=== PATIENT | male | born 1985 | race Caucasian/White ===

== ENCOUNTER 2024-09-02 10:36 | Emergency (ER) | payer OTHER, SELFPAY ==
[2024-09-02 10:39] VITALS: BP 130/75; PULSE 85; RESP 18; TEMP 36.4; O2SAT 99; BMI 22.0
[2024-09-02 11:17] LABS: Basophils Absolute Auto 0.1 X10*3/uL (0.0-0.2); Basophils Percent Auto 0.4 % (0-2); Eosinophils Absolute Auto 0.1 X10*3/uL (0.0-0.4); Eosinophils Percent Auto 0.3 % (0-4); Hematocrit 39.6 % (42.0-52.0); Hemoglobin 13.4 g/dl (14.0-18.0); Imm Gran Abs Auto 0.11 X10*3/uL (0.00-0.03); Imm Gran Pct Auto 0.7 % (0.0-0.4); Lymphocytes Absolute Auto 1.1 X10*3/uL (1.2-4.9); Lymphocytes Percent Auto 6.8 % (20-40); MANUAL DIFF FLAG SCAN; Mean Corpuscular HGB Conc 33.8 g/dl (31.0-36.0); Mean Corpuscular Hemoglobin 27.6 pg (27.0-33.0); Mean Corpuscular Volume 81.5 fL (80.0-98.0); Monocytes Percent Auto 12.2 % (2-11); Neutrophils Absolute Auto 13.3 x10*3/uL (2.0-8.3); Neutrophils Percent Auto 79.6 % (45-73); PLT CLUMP 1; Red Blood Count 4.86 X10*6/uL (4.60-5.80); Red Cell Distribution Width 14.2 % (11.0-16.0); SCAN SMEAR FLAG 1
--- NOTE | 2024-09-02 11:22 | ED_ITS ---
HPI - General Adult General Chief complaint: General Medical Stated complaint: Cellulitis R arm? Time Seen by Provider: 09/02/24 11:13 History of Present Illness HPI narrative: Patient is a 38-year-old male with a history IV drug use. Complaining pain and swelling to the right forearm area. Patient is right-hand dominant. He complains that the cat scratched him 3-4 days ago. He also has a history of IV drug use. He claims he last used about a week ago. There is no fever no chills no systemic complaints. Patient is from home. Related Data Previous Rx's ?Medication ?Instructions ?Recorded doxycycline hyclate 100 mg capsule 100 mg PO BID cough 7 days #14 caps 09/02/24 Allergies Allergy/AdvReac Type Severity Reaction Status Date / Time No Known Allergies Allergy Verified 09/02/24 10:42 Review of Systems 2 Review of Systems: Positive swelling to the right forearm Yes all other systems are reviewed and are negative PMFSH Past Medical History Attestation statement: The following information was validated with the patient. Social History Social History Smoked in Last 30 Days: Yes Use of substances other than those prescribed or required for medical reasons: No Advance Directives: No Advance Directives Information Provided: Yes Physical Exam ED Vital Signs: Vital Signs - 24 hr 09/02/24 10:39 09/02/24 12:03 Temperature 97.5 F 98.5 F Pulse Rate 85 65 Respiratory Rate 18 12 Blood Pressure 130/75 111/68 Pulse Oximetry 99 97 Oxygen Delivery Method Room Air Room Air BMI result Body Mass Index 22.0 Appearance: Alert. Oriented X3. No acute distress. Eyes: Pupils equal, round and reactive to light. ENT: Pharynx normal. Neck: Normal inspection. Neck supple. No lymph nodes noted. No crepitus CVS: Normal heart rate and rhythm. Pulses normal. Normal S1 and S2 Respiratory: No respiratory distress. Breath sounds normal. No Wheezing. No rales Abdomen: Soft and nontender. No rigidity. No distention. good BS x4 Skin: Large fluctuant warm lesion over the right forearm area approximately 8 cm x 6 cm in size fluctuant red warm to touch. Distally sensation over the hand grossly intact over median radial ulnar nerve distribution there is no anatomical snuffbox tenderness there is good range of motion at the wrist she has good hand movement there is good opposition of the thumb there is good capillary refill. Extremities: No lower extremity edema. Neurovascular intact to all extremities. No Lacerations. No Rash Neuro: Oriented X 3. No motor deficit. No sensory deficit. Moving all extermities. No slurred speech Medications Administered Discontinued Medications Generic Name Dose Route Start Last Admin Trade Name Taeq PRN Reason Stop Dose Admin Doxycycline Monohydrate 100 mg 09/02/24 11:21 09/02/24 11:51 Doxycycline Monohydrate 100 Mg Capsule PO 09/02/24 11:22 100 mg ONCE ONE Administration Lidocaine HCl 10 ml 09/02/24 11:22 09/02/24 11:53 Lidocaine Hcl 1 % Mpf 5 Ml Vial SUBCUT 09/02/24 11:23 10 ml ONCE ONE Administration Procedures Abscess I/D Site: upper extremity (right forearm) Side (if applicable): right Local Anesthetic: lidocaine 1% Amount of anesthesia used (mL): 5 Technique: needle aspiration and incised with blade Amount of fluid expressed (mL): 15 Sent for culture/gram staining?: Yes Irrigation: Yes Packing used?: iodoform Medical Decision Making Medical Decision Making [facility] Narrative: Large abscess over the right forearm will require I&D. Risks and benefits discussed with patient. Agreed to plan. Because it is a significant area of cellulitis surrounding the wound. Will also give antibiotics. Significant history of IV drug use. Will give doxycycline to cover community-acquired MRSA. Patient agreed to I and D. I and D was performed. Large amount of pus expressed. Patient's wound was packed. Will discharge patient home. A 1st dose of antibiotic was given. Differential Diagnosis Differential Diagnoses: The differential diagnosis associated with the presentation includes Cellulitis versus abscess Admission/Observation Consideration of admission/observation: Escalation of care including admission/observation considered Considered addition but given did not admits SIRS criteria fair appearing wound was I indeed antibiotics to be started. Lab Data [facility] Lab Attestation statement: I reviewed the patient's lab results. 09/02/24 10:59 09/02/24 10:59 Labs: Lab Results 09/02/24 Range/Units 10:59 WBC 16.7 H (4.8-10.8) X10*3/uL RBC 4.86 (4.60-5.80) X10*6/uL Hgb 13.4 L (14.0-18.0) g/dl Hct 39.6 L (42.0-52.0) % MCV 81.5 (80.0-98.0) fL MCH 27.6 (27.0-33.0) pg MCHC 33.8 (31.0-36.0) g/dl RDW 14.2 (11.0-16.0) % Plt Count 267 (160-400) X10*3/uL MPV 9.0 L (9.4-12.4) fL Immature Gran % (Auto) 0.7 H (0.0-0.4) % Neut % (Auto) 79.6 H (45-73) % Lymph % (Auto) 6.8 L (20-40) % [place] % (Auto) 12.2 H (2-11) % Eos % (Auto) 0.3 (0-4) % Baso % (Auto) 0.4 (0-2) % Lymph # (Auto) 1.1 L (1.2-4.9) X10*3/uL [place] # (Auto) 2.0 H (0.1-1.2) X10*3/uL Eos # (Auto) 0.1 (0.0-0.4) X10*3/uL Baso # (Auto) 0.1 (0.0-0.2) X10*3/uL Abs Immat Gran (auto) 0.11 H (0.00-0.03) X10*3/uL Absolute Neuts (auto) 13.3 H (2.0-8.3) x10*3/uL Absolute Nucleated RBC 0.000 (0.0-0.012) X10*3/uL Nucleated RBC % (auto) 0.0 (0.0-0.2) /100WBC Smear Tech's Comments VERIFIED Sodium 138 (135-145) mmol/L Potassium 4.4 (3.3-5.1) mmol/L Chloride 106 (96-108) mmol/L Carbon Dioxide 23 (22-29) mmol/L Anion Gap 13 (12-20) BUN 10 (9-16) mg/dL Creatinine 0.79 (0.5-1.4) mg/dL Estim Creat Clear Calc 122.1 Estimated GFR > 60 Random Glucose 100 (60-115) mg/dL Lactic Acid 1.7 (0.5-2.0) mmol/L Calcium 9.3 (8.4-10.2) mg/dL Total Bilirubin 0.9 (0.0-1.0) mg/dL AST 19 (5-37) U/L ALT 11 (0-40) U/L Alkaline Phosphatase 79 (39-117) U/L Total Protein 8.2 H (6.5-8.0) g/dL Albumin 4.0 (3.5-5.0) g/dL Discharge Plan Discharge Clinical Impression: Abscess Patient Disposition: Home, Self-Care Instructions: Abscess (ED), Abscess Incision and Drainage (DC) Prescriptions: New doxycycline hyclate 100 mg capsule 100 mg PO BID 7 Days Qty: 14 0RF Referrals: Aleksandra Alejandro MD [Emergency Provider] - 09/05/24 (Follow-up in the emergency department in 2-3 days.) Print Language: Welsh
[2024-09-02 11:24] LABS: Alanine Aminotransferase 11 U/L (0-40); Alkaline Phosphatase 79 U/L (39-117); Anion Gap 13 (12-20); Aspartate Amino Transferase 19 U/L (5-37); Bilirubin Total 0.9 mg/dL (0.0-1.0); Blood Urea Nitrogen 10 mg/dL (9-16); Calcium 9.3 mg/dL (8.4-10.2); Carbon Dioxide 23 mmol/L (22-29); Chloride 106 mmol/L (96-108); Creatinine Clr Calc Pharmacy 122.1; Estimated Glomerular Filt Rate > 60; Glucose Random 100 mg/dL (60-115); Lactic Acid 1.7 mmol/L (0.5-2.0); Potassium 4.4 mmol/L (3.3-5.1); Sodium 138 mmol/L (135-145); Total Protein 8.2 g/dL (6.5-8.0)
[2024-09-02 11:41] LABS: Platelet Count 267 X10*3/uL (160-400); SLIDE REVIEW VERIFIED; White Blood Count 16.7 X10*3/uL (4.8-10.8)
[2024-09-02] MEDS: Doxycycline Monohydrate 100 MG CAPSULE PO (11:51)
[2024-09-02] MEDS: Lidocaine HCl 1 % MPF 5 ML VIAL 10 ML SUBCUT (11:53)
[2024-09-02 12:03] VITALS: BP 111/68; PULSE 65; RESP 12; TEMP 36.9; O2SAT 97
[2024-09-02 13:27] VITALS: BP 111/68; PULSE 65; RESP 12; TEMP 36.9; O2SAT 97
--- OUTSIDE RECORDS SUMMARY | 2024-09-02 13:41 | XMS_ITS | Clinical Summary ---
Author Organization [facility] Address [address] [place] [address] Care Team Providers Care Trade Specialist Name Role Phone Unavailable Primary Care Provider Unavailabl e Social History Tobacco Use Types Packs/Day Years Used Date Smoking Tobacco: Never Assessed Sex and Gender Information Value Date Recorded Sex Assigned at Not on file Legal Sex Male 2:43 PM EST Gender Identity Not on file Sexual Orientation Not on file Plan of Treatment Health Maintenance Due Date Last Done Comments DTaP,Tdap,and Td Vaccines (1 - Tdap) 10/26/2002 Hepatitis B Vaccines (1 of 3 - 19+ 3-dose series) 10/26/2002 COVID-19 Vaccine (2023-2 5 season) 2024 Influenza Vaccine (#1) 2024 HIB Vaccines Aged Out No longer eligi ble based on patient's age to complete this topic HPV Vaccines Aged Out No longer eligi ble based on patient's age to complete this topic Hepatitis A Vaccines Aged Out No long er eligible based on patient's age to complete this topic IPV Vaccines Aged Out No longer eligi ble based on patient's age to complete this topic MMR Vaccines Aged Out No longer eligi ble based on patient's age to complete this topic Meningococcal ACWY Vaccine Aged Out N o longer eligible based on patient's age to complete this topic Meningococcal B Vacine Aged Out No lo nger eligible based on patient's age to complete this topic Pneumococcal Vaccine: Pediat rics (0 to 5 Years) and At-Risk Patients (6 to 64 Years) Aged Out No longer eligible b ased on patient's age to complete this topic RSV Immunization Patients Un enoc 20 months Aged Out No longer eligible b ased on patient's age to complete this topic Varicella Vaccines Aged Out No longer eligible based on patient's age to complete this topic
== END 2024-09-02 13:32 | disposition home or self-care (01) ==
PROVIDERS: Emergency Provider Emergency Medicine Emergency Medical Services
DX: L02.413 Cutaneous abscess of right upper limb (principal); M79.631 Pain in right forearm
CPT/HCPCS: 10060; 36415; 80053; 83605; 85025; 87040; 87070; 87077; 87186; 87205; 99284; J2003

== ENCOUNTER 2024-09-04 12:32 | Emergency (ER) | payer OTHER, SELFPAY ==
[2024-09-04 13:25] VITALS: BP 103/64; PULSE 64; RESP 16; TEMP 36.6; O2SAT 98; BMI 22.3
--- NOTE | 2024-09-04 13:26 | ED_ITS ---
HPI - Wound/Laceration General Chief Complaint: Wound/Laceration Stated Complaint: wound check Time Seen by Provider: 09/04/24 15:57 Source: patient Mode of arrival: ambulatory Limitations: no limitations History of Present Illness ED Provider: Luis Angel Maloney HPI narrative: 38-year-old male history of IV drug abuse presents to the ED for wound re- evaluation. Patient is status post incision and drainage of right forearm. Patient states being compliant with antibiotics. Patient denies any fever or chills. Patient denies any nausea or vomiting. Patient denies any recent IV drug use. Related Data Previous Rx's ?Medication ?Instructions ?Recorded doxycycline hyclate 100 mg capsule 100 mg PO BID cough 7 days #14 caps 09/02/24 Allergies Allergy/AdvReac Type Severity Reaction Status Date / Time No Known Allergies Allergy Verified 09/04/24 13:26 Review of Systems 2 Review of Systems: Right forearm wound recheck Yes all other systems are reviewed and are negative PMFSH Social History Social History Advance Directives: No Advance Directives Information Provided: Yes Physical Exam 2 Vital Signs: Vital Signs: Last Vital Signs Temp 98 F 09/04/24 17:32 Pulse 67 09/04/24 17:32 Resp 18 09/04/24 17:32 BP 108/68 09/04/24 17:32 Pulse Ox 98 09/04/24 17:32 O2 Del Method Room Air 09/04/24 17:32 BMI result Body Mass Index 22.3 Const: General: cooperative, healthy appearing, comfortable, no acute distress, well developed, alert, awake and Physically active O rientation/consciousness: patient oriented x3 HEENT: Head: Yes normal to inspection, Yes No palpable skull fracture present, Yes normocephalic and Yes atraumatic Eyes: General: appearance normal, both eyes and all related structures Neck: Neck: Yes normal visual inspection, Yes full ROM, Yes no lymphadenopathy, Yes no meningeal signs, Yes trachea midline, Yes supple, No anterior neck swelling and No tender Chest: Chest palpation & inspection: normal inspection of the chest and normal palpation of entire chest wall Resp: Effort & Inspection: normal respiratory effort and able to speak in complete sentences Auscultation: clear to auscultation bilaterally Cardio: Jugular venous distension: no JVD Heart sounds: S1 normal heart sound present and S2 normal heart sound present GI: Inspection: Yes normal to inspection Palpation (GI): Soft to palpation, not firm, nontender, no guarding and not rigid : General: Yes no CVA tenderness Back/Spine/Pelvis: Back: no CVA tenderness and No back tenderness Skin: General skin exam: no rashes or lesions noted, elasticity normal and turgor normal Neuro: General: patient oriented x3, gait normal, tone normal, moves all extremities, Normal light touch and pain sensation, no meningeal signs, no focal motor deficits, CN's II-XI intact bilaterally and normal sensation to monofilament Extrem: General: Yes normal to inspection, Yes full ROM and Yes capillary refill normal Elbow/forearm/wrist images: 1. Wound is healing. Packing removed slight drainage. Patient states redness is improving. Vascular motor neuro exam and Psych: Appearance: grossly normal, well kempt and not disheveled Course Course Course Narrative: This is an RME: Additional HPI, ROS, PE not included below will be deferred to primary provider. RME assessment and note performed by: Rani Temple PA-C This is a 38-year-old male who presents emergency department for evaluation of wound check. Had a large abscess excised on his right forearm needs packing removed. Reports that it is getting better slightly. Also reporting right upper tooth pain. Plan: will unpack Medications Administered Discontinued Medications Generic Name Dose Route Start Last Admin Trade Name Freq PRN Reason Stop Dose Admin Ibuprofen 600 mg 09/04/24 13:28 09/04/24 13:31 Ibuprofen 600 Mg Tablet PO 09/04/24 13:29 600 mg ONCE ONE Administration Medical Decision Making Medical Decision Making [facility] Narrative: 38-year-old male presents to ED for wound check. Abscesses healing. Packing removed. Plan was to place a new packing but patient refused packing. Area cleaned and new dressing placed. Patient informed to follow up with primary care provider and Wound Clinic. Patient informed to return to the ED immediately for any concerning symptoms. Not suspecting sepsis, endocarditis, septic emboli, necrotizing fasciitis, lymphangitis, compartment syndrome, osteomyelitis, or any other life threatening etiology. Differential Diagnosis Differential Diagnoses: The differential diagnosis associated with the presentation includes (Wound re-evaluation) Admission/Observation Consideration of admission/observation: Escalation of care including admission/observation considered Independent Historian Clinical information obtained from an independent historian. History obtained from or confirmed by: Other (Patient) Prescription Management I considered prescription management with: Other (Antibiotic) Discharge Plan Discharge Clinical Impression: Encounter for wound re-check Patient Disposition: Home, Self-Care Instructions: Abscess Follow-up (ED) Additional Instructions: Recommend follow-up with primary care provider and Wound Clinic. Return to the ED immediately for worsening redness, swelling, worsening discharge, bluish discoloration, fever, chills, or any other concerning symptoms. Continue taking antibiotics as prescribed. Prescriptions: No Action doxycycline hyclate 100 mg capsule 100 mg PO BID 7 Days Qty: 14 0RF Referrals: [facility] Wound Care Management [Provider Group] (Drained abscess. Cellulitis being treated. History of IV drug use) Interventions: ED Discharge Assessment Last Done: 09/04/24 17:32 Discharge Date/Time: 09/04/24 17:33 Print Language: Mauritian
[2024-09-04] MEDS: Ibuprofen 600 MG TABLET PO (13:31)
[2024-09-04 16:54] VITALS: BP 116/66; PULSE 66; RESP 19; TEMP 36.6; O2SAT 98
--- NOTE | 2024-09-04 17:30 | PC.NURSE ---
pt had packing/dressing changed by provider to rt FA, pt to discharge home
[2024-09-04 17:32] VITALS: BP 108/68; PULSE 67; RESP 18; TEMP 36.6; O2SAT 98
--- OUTSIDE RECORDS SUMMARY | 2024-09-04 19:13 | XMS_ITS | Clinical Summary ---
Author Organization [facility] Address [address] [place] [address] Care Team Providers Care Dining Server Name Role Phone Unavailable Primary Care Provider [...]
== END 2024-09-04 17:33 | disposition home or self-care (01) ==
PROVIDERS: Emergency Provider Emergency Medicine
DX: Z48.00 Encounter for change or removal of nonsurgical wound dressing (principal); L02.413 Cutaneous abscess of right upper limb; F19.10 Other psychoactive substance abuse, uncomplicated
CPT/HCPCS: 99283